=== PATIENT | male | born 1965 | race African-American/Black ===

== ENCOUNTER → 2019-08-19 | Outpatient (CLI) | payer OTHER ==
[2016-01-04 20:33] VITALS: BP 144/78
[~2019-08-19] MED LIST: CEPH500C PO; CHOL400T36 PO; CYCL-331 PO; FLEXERIL; HYDR-3165 PO; NAPR-514 PO
== END | disposition home or self-care (01) ==
LOC: LAB 08:21
PROVIDERS: ATTEND Registered Nurse
DX: Z11.59 Encounter for screening for other viral diseases (principal)
CPT/HCPCS: U0003-CS

== ENCOUNTER → 2019-08-23 | Day surgery (SDC) | payer OTHER ==
[~2019-08-23] MED LIST changes: +IV RINGERS SOLUTION,LACTATED 1,000 ML IV SCH; +ONDANSETRON PF 4 MG/2 ML VIAL. IV PRN; +PROPOFOL 10,000 MCG/ML (20ML) VIAL IV ONE
[2019-08-23 08:15] VITALS: BP 133/87
== END | disposition home or self-care (01) ==
LOC: SURG 06:34
PROVIDERS: ATTEND Emergency Medicine
DX: Z12.11 Encounter for screening for malignant neoplasm of colon (principal); Z86.010 Personal history of colon polyps; Z79.899 Other long term (current) drug therapy
CPT/HCPCS: 45385; 88305; J2704; J7120